=== PATIENT | female | born 1995 | race Caucasian/White ===

== ENCOUNTER 2024-09-08 03:24 | Inpatient (IN) | payer BC ==
[2024-09-08 04:07] VITALS: BMI 32.5
[2024-09-08] MEDS ORDERED: Promethazine HCl 25 MG/ML VIAL IM PRN (04:32)
[2024-09-08] MEDS ORDERED: hydrALAZINE 20 MG/ML VIAL SLOW IVP PRN ×2 (04:32→09:28)
[2024-09-08] MEDS ORDERED: Ondansetron PF 4 MG/2 ML Vial IVP PRN ×2 (04:32→09:28)
[2024-09-08] MEDS ORDERED: Lidocaine 1% (PF) 30 ML VIAL SC PRN (04:32)
[2024-09-08] MEDS ORDERED: fentaNYL 50 mcg/mL 1 mL Vial SLOW IVP PRN (04:33)
[2024-09-08] MEDS ORDERED: Ibuprofen 800 MG TAB PO PRN (04:33)
[2024-09-08] MEDS ORDERED: Carboprost 250 MCG/ML AMP IM PRN (04:33)
[2024-09-08] MEDS ORDERED: Tranexamic Acid 1,000 MG/10 ML VIAL IVP PRN (04:33)
[2024-09-08] MEDS ORDERED: Acetaminophen 500 MG TAB PO PRN (04:33)
[2024-09-08] MEDS ORDERED: Docusate 100 MG CAP PO PRN (04:33)
[2024-09-08] MEDS ORDERED: Misoprostol 200 MCG TAB PR PRN (04:33)
[2024-09-08] MEDS ORDERED: Methylergonovine 0.2 MG/ML VIAL IM PRN (04:33)
[2024-09-08] MEDS ORDERED: Lactated Ringer's 1,000 ML IV SCH (04:45)
[2024-09-08 05:16] LABS: Hematocrit 35.1 % (34.9-44.5); Hemoglobin 11.4 g/dL (12.0-15.5); Mean Corpuscular HGB CONC 32.5 g/dL (32.0-36.0); Mean Corpuscular Hemoglobin 26.6 pg (27.0-33.0); Mean Platelet Volume 12.1 fL (7.4-10.4); Platelet Count 199 10x3/uL (150-450); Red Blood Cell (RBC) Count 4.28 10x6/uL (3.90-5.03); White Blood Cell (WBC) Count 12.97 10x3/uL (3.5-10.5)
[2024-09-08 05:57] LABS: HBsAg Index 0.19 S/CO (0-0.99); Hep B Surf Ag - L&D Non-Reactive S/CO (NonReactive)
[2024-09-08 05:59] LABS: Syphilis Antibody Nonreactive (Nonreactive); Syphilis Antibody Index 0.06 S/CO (<1.00 Non-Reactive)
[2024-09-08] MEDS: Oxytocin 30 units/NS 500 ML 500 ML IV SCH (06:30)
[2024-09-08] MEDS ORDERED: Lanolin Ointment 7 GM TUBE TOP PRN (09:28)
[2024-09-08] MEDS ORDERED: Milk Of Magnesia 30 ML UDCUP PO PRN (09:28)
[2024-09-08] MEDS ORDERED: Bisacodyl 10 MG SUPP PR PRN (09:28)
[2024-09-08] MEDS ORDERED: Benzocaine-Menthol 82.5 ML CAN TOP PRN (09:28)
[2024-09-08] MEDS ORDERED: Boostrix 0.5 ML (Tdap) VIAL (>/=7 yrs of age) IM ONE (09:28)
[2024-09-08] MEDS ORDERED: Misoprostol 200 MCG TAB VAG PRN (09:28)
[2024-09-08] MEDS ORDERED: HYDROcodone/Acetaminophen 5/325 mg Tablet PO PRN ×2 (09:28)
[2024-09-08] MEDS: Ferrous Sulfate 325 MG TAB PO SCH ×2 (10:21→17:20)
[2024-09-08] MEDS: Docusate 100 MG CAP PO SCH (10:21)
[2024-09-08] MEDS: Prenatal Vitamin 1 TAB PO SCH (10:21)
[2024-09-08] MEDS: Ibuprofen 800 MG TAB PO SCH (12:53)
[2024-09-09 08:16] VITALS: BP 120/75; TEMP 97.9
== END 2024-09-09 12:15 | disposition home or self-care (01) | DRG 807 ==
LOC: CSHLD/OP 03:24 → CSHLD 04:32 → CSHPP 08:54
PROVIDERS: ADMIT Obstetrics & Gynecology; ATTEND Obstetrics & Gynecology
PROC: 10E0XZZ Delivery of Products of Conception, External Approach (ICD-10-PCS; principal; 2024-09-08)
DX: O42.02 Full-term premature rupture of membranes, onset of labor within 24 hours of rupture (principal); Z37.0 Single live birth; Z88.8 Allergy status to other drugs, medicaments and biological substances; Z88.1 Allergy status to other antibiotic agents; Z3A.40 40 weeks gestation of pregnancy
CPT/HCPCS: 36415; 85027; 86780; 86850; 86900; 86901; 87340; 99285; J2590